=== PATIENT | female | born 1950 | race Caucasian/White ===

== ENCOUNTER 2017-04-21 08:29 | Day surgery (SDC) | payer OTHER ==
[2017-04-21] MEDS ORDERED: PROPOFOL 20 ML ONE ×2 (08:37)
[2017-04-21 10:18] VITALS: TEMP 98
[2017-04-21 10:46] VITALS: BP 110/57; PULSE 62
--- NOTE | 2017-04-24 12:27 | PATH ---
Surgical Pathology Report Patient Name: SHARON MADISON [facility]. Rec. #: [id number] /Age/Gender: 1950 (Age: 66) / F Account: [id number] Location: [facility] [place] Taken: 04/21/2017 Received: 04/21/2017 Reported: 04/24/2017 Physicians: Sean Pryor M.D. Specimen(s) Received PROXIMAL RIGHT COLON Clinical History Family history of colon cancer Post-operative diagnosis: polyp Final Diagnosis PROXIMAL RIGHT COLON, POLYP, POLYPECTOMY: INFLAMMATORY POLYP. Electronically Signed Maggie Goodwin M.D. Gross Description Received in formalin, labeled "proximal right colon" are 3 aguila, irregular portions of soft tissue ranging from 0.2-0.7 cm. in greatest dimension. The specimens are submitted in toto in one cassette. 04/22/201704/22/2017
== END 2017-04-21 10:49 | disposition home or self-care (01) ==
LOC: FASU-ENDO 08:29
PROVIDERS: ATTEND Internal Medicine Gastroenterology
PROC: 0DBK8ZX Excision of Ascending Colon, Via Natural or Artificial Opening Endoscopic, Diagnostic (ICD-10-PCS; principal; 2017-04-21 09:34)
DX: Z12.11 Encounter for screening for malignant neoplasm of colon (principal); Z80.0 Family history of malignant neoplasm of digestive organs; K51.40 Inflammatory polyps of colon without complications
CPT/HCPCS: 88305-TC

== ENCOUNTER 2022-07-01 10:44 | Day surgery (SDC) | payer OTHER ==
[2022-06-27 13:52] VITALS: BMI 19.1
[2022-07-01 13:12] VITALS: TEMP 97.7
[2022-07-01 13:20] VITALS: BP 103/56; PULSE 75; RESP 16
== END 2022-07-01 12:45 | disposition home or self-care (01) ==
LOC: FASU-ENDO 10:44
PROVIDERS: ATTEND Internal Medicine Gastroenterology
PROC: 0DBL8ZX Excision of Transverse Colon, Via Natural or Artificial Opening Endoscopic, Diagnostic (ICD-10-PCS; principal; 2022-07-01 11:28)
DX: Z12.11 Encounter for screening for malignant neoplasm of colon (principal); K63.5 Polyp of colon; K57.30 Diverticulosis of large intestine without perforation or abscess without bleeding; Z86.010 Personal history of colon polyps; Z80.0 Family history of malignant neoplasm of digestive organs
CPT/HCPCS: 88305-TC; 88342-TC